=== PATIENT | female | born 2005 | race African-American/Black ===

== ENCOUNTER 2024-01-22 12:53 | Emergency (ER) | payer SELFPAY ==
[2024-01-22 14:06] LABS: #Basophils Less than 0.03 10x3/uL (0.0-0.2); %Basophils 0.1 % (0.0-1.0); %Eosinophils 0.6 % (0.0-10.0); %Lymphocytes 18.7 % (28.0-48.0); %Neutrophils 74.2 % (31.0-61.0); Hematocrit 35.2 % (36.0-47.0); Hemoglobin 11.6 g/dL (12.0-16.0); Mean Platelet Volume 9.5 fL (7.4-10.4); Platelet Count 263 10x3/uL (130-400); RBC Distribution Width 11.9 % (11.5-14.5); Red Blood Cell (RBC) Count 3.52 mill/uL (4.00-5.20)
[2024-01-22 14:23] LABS: ALT (SGPT) 25 U/L (8-55); AST (SGOT) 28 U/L (5-34); Albumin 3.2 g/dL (3.5-5.0); Alkaline Phosphatase 66 U/L (40-100); Anion Gap 13 mmol/L (10-20); BUN (Urea Nitrogen) 8 mg/dL (7.0-18.7); Bilirubin, Total 0.5 mg/dL (0.2-1.2); Calc. Creatinine Clearance 0 mL/min (70-130); Calcium 9.3 mg/dL (7.8-10.44); Carbon Dioxide 22 mmol/L (22-29); Chloride 108 mmol/L (98-107); Estimated GFR 132; Globulin 3.8 g/dL (2.4-3.5); Glucose 71 mg/dL (70-105); Potassium 4.3 mmol/L (3.5-5.1); Sodium 139 mmol/L (136-145)
[2024-01-22] MEDS ORDERED: Lidocaine 1% MPF 2 ML VIAL ONE (15:56)
[2024-01-22] MEDS ORDERED: Azithromycin 250 MG TAB ONE (15:57)
[2024-01-22] MEDS ORDERED: cefTRIAXone (ROCEPHIN) 500 MG VIAL ONE (15:57)
[2024-01-22 19:15] LABS: Syphilis Antibody Nonreactive (Nonreactive); Syphilis Antibody Index 0.09 S/CO (<1.00 Non-Reactive)
== END 2024-01-22 14:30 | disposition home or self-care (01) ==
LOC: ERS 12:53
DX: N76.0 Acute vaginitis (principal)
CPT/HCPCS: 36415; 80053; 84702; 85025; 86780; 96372; 99283; J0696